=== PATIENT | female | born 1975 | race Caucasian/White ===

== ENCOUNTER 2021-08-22 11:16 | Emergency (ER) | payer SELFPAY ==
[2021-08-22 11:54] LABS: Urine Blood Negative (Negative); Urine Glucose Negative (Negative); Urine Protein Trace (Negative); Urine Specific Gravity >=1.030 (1.005-1.030)
[2021-08-22] MEDS ORDERED: LIDOCAINE VISCOUS 2% SOLN 15 ML UDC ONE (12:17)
[2021-08-22] MEDS ORDERED: MAGNES/ALUMIN/SIMET 30ML UCUP ONE (12:17)
[2021-08-22 12:20] LABS: Basophils % 0.5 % (0-1.3); Hematocrit 41.6 % (36.0-45.0); Lymphocytes % 14.1 % (15.3-44.8); MPV 8.6 fL (7.6-11.3); RBC Red Blood Cell Count 4.41 M/uL (3.86-4.86)
[2021-08-22 12:41] LABS: Urine Specific Gravity/Preg >1.030 (1.005-1.030)
[2021-08-22 12:47] LABS: ALT/SGPT 23 U/L (12-78); AST/SGOT 15 U/L (15-37); Albumin 3.5 g/dL (3.4-5.0); Alkaline Phosphatase 68 U/L (45-117); BUN Blood Urea Nitrogen 13 mg/dL (7-18); Bicarbonate 30 mmol/L (21-32); Bilirubin Direct 0.1 mg/dL (0-0.2); Bilirubin Total 0.5 mg/dL (0.2-1.0); Glucose Level 92 mg/dL (74-106); Lipase 101 U/L (73-393); Protein, Total 7.4 g/dL (6.4-8.2); Sodium Level 142 mmol/L (136-145)
--- NOTE | 2021-08-22 13:58 | RAD REPORT ---
EXAM DESCRIPTION: CT - Abdomen Pelvis W Contrast - 08/22/2021 1:37 pm CLINICAL HISTORY: Abdominal pain COMPARISON: none. TECHNIQUE: Computed axial tomography of the abdomen pelvis was obtained. 100 cc Isovue-300 was admin istered intravenously. Oral contrast was not requested which limits evaluation of bowel. All CT scans are performed using dose optimization technique as appropriate and may include automated exposure control or mA/KV adjustment according to patient size. FINDINGS: The wall of the distal stomach is thickened. Small hepatic cyst Spleen, pancreas, adrenals and kidneys are unremarkable The wall of the rectum is thickened. No evidence of diverticulitis. Endometrial stripe is mildly prominent. IMPRESSION: Wall of the distal stomach is thickened probably a gastritis. Follow-up recommended. Wall of the rectum is thickened. This could be post treatment change, inflammation or neoplasm. Endometrial stripe is mildly prominent. If the patient is premenopausal then this probably is not sig nificant. If the patient is postmenopausal this could indicate neoplasm, hyperplasia or polyp.
--- NOTE | 2021-08-22 15:20 | EDPHYS ---
Physician Documentation [facility] Name: Maryuri Cooley Age: 46 yrs Sex: Female : 1975 Arrival Date: 08/22/2021 Time: 11:18 Bed 13 Private MD: ED Physician Pk Arzate HPI: 08/22 17:55 This 46 yrs old Female presents to ER via Ambulatory with complaints of kdr Abdominal Pain, Diarrhea. 17:52 The patient presents to the emergency department with nausea, vomiting, abdominal pain. kdr Onset: The symptoms/episode began/occurred acutely, 2 day(s) ago. Possible causes: unknown. The symptoms are aggravated by food , The symptoms are alleviated by nothing. Associated signs and symptoms: The patient has no apparent associated signs or symptoms. Severity of symptoms: At their worst the symptoms were mild moderate just prior to arrival. The patient has not experienced similar symptoms in the past. The patient has not recently seen a physician. Patient has had upper abdominal pain since yesterday. There is a generalized level of discomfort with occasional spikes of sharp pain. She has had some nausea but no vomiting notes some loose stools but not diarrhea. She has not experienced this before. She is otherwise in good health and has no other associated signs and symptoms. 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 - Social history:: Smoking status: Patient denies any tobacco usage or history of. ROS: 17:52 Constitutional: Negative for fever, chills, and weight loss, Eyes: Negative for injury, kdr pain, redness, and discharge, ENT: Negative for injury, pain, and discharge, Neck: Negative for injury, pain, and swelling, Cardiovascular: Negative for chest pain, palpitations, and edema, Respiratory: Negative for shortness of breath, cough, wheezing, and pleuritic chest pain, Back: Negative for injury and pain, : Negative for injury, bleeding, discharge, and swelling, MS/Extremity: Negative for injury and deformity, Skin: Negative for injury, rash, and discoloration, Neuro: Negative for headache, weakness, numbness, tingling, and seizure activity. Psych: Negative for depression, anxiety, suicide ideation, homicidal ideation, and hallucinations, Allergy/Immunology: Negative for hives, rash, and allergies, Endocrine: Negative for neck swelling, polydipsia, polyuria, polyphagia, and marked weight changes, Hematologic/Lymphatic: Negative for swollen nodes, abnormal bleeding, and unusual bruising. 17:52 Abdomen/GI: Positive for abdominal pain, nausea, vomiting, and diarrhea, Patient states that she feels slightly bloated. Exam: 17:52 Constitutional: This is a well developed, well nourished patient who is awake, alert, kdr and in no acute distress. Head/Face: Normocephalic, atraumatic. Eyes: Pupils equal round and reactive to light, extra-ocular motions intact. Lids and lashes normal. Conjunctiva and sclera are non-icteric and not injected. Cornea within normal limits. Periorbital areas with no swelling, redness, or edema. Neck: Trachea midline, no thyromegaly or masses palpated, and no cervical lymphadenopathy. Supple, full range of motion without nuchal rigidity, or vertebral point tenderness. No Meningismus. Chest/axilla: Normal chest wall appearance and motion. Nontender with no deformity. No lesions are appreciated. Cardiovascular: Regular rate and rhythm with a normal S1 and S2. No gallops, murmurs, or rubs. Normal PMI, no JVD. No pulse deficits. Respiratory: Lungs have equal breath sounds bilaterally, clear to auscultation and percussion. No rales, rhonchi or wheezes noted. No increased work of breathing, no retractions or nasal flaring. Back: No spinal tenderness. No costovertebral tenderness. Full range of motion. Skin: Warm, dry with normal turgor. Normal color with no rashes, no lesions, and no evidence of cellulitis. MS/ Extremity: Pulses equal, no cyanosis. Neurovascular intact. Full, normal range of motion. Neuro: Awake and alert, GCS 15, oriented to person, place, time, and situation. Cranial nerves II-XII grossly intact. Motor strength 5/5 in all extremities. Sensory grossly intact. Cerebellar exam normal. Normal gait. Psych: Awake, alert, with orientation to person, place and time. Behavior, mood, and affect are within normal limits. 17:52 Abdomen/GI: Inspection: abdomen appears normal, Bowel sounds: diminished, in all quadrants, Palpation: soft, mild abdominal tenderness, in the epigastric area, right upper quadrant and left upper quadrant. Vital Signs: 11:26 BP 141 / 110; Pulse 95; Resp 16; Temp 97.8; Pulse Ox 100% on R/A; Weight 49.9 kg; iw Height 5 ft. 0 in. (152.40 cm); Pain 8/10; 14:09 BP 140 / 99; Pulse 66; Resp 15; Pulse Ox 100% ; Pain 8/10; jl7 15:00 BP 137 / 92; Pulse 70; Resp 15; Pulse Ox 100% ; jl7 11:26 Body Mass Index 21.48 (49.90 kg, 152.40 cm) iw MDM: 15:20 Patient medically screened. kdr 17:52 Data reviewed: vital signs, nurses notes, lab test result(s), radiologic studies. kdr Counseling: I had a detailed discussion with the patient and/or guardian regarding: the historical points, exam findings, and any diagnostic results supporting the discharge/admit diagnosis, lab results, radiology results, the need for outpatient follow up. ED course: The patient improved with the interventions given. She did not get complete resolution of her symptoms but did feel better. She was happy with the care provided and the plan for follow-up after discharge. 08/22 11:25 Order name: Basic Metabolic Panel [facility] [address] 08/22 11:25 Order name: CBC with Diff; Complete Time: 13:57 [facility] [address] 08/22 11:25 Order name: Hepatic Function [facility] [address] 08/22 11:25 Order name: Lipase [facility] [address] 08/22 11:26 Order name: Basic Metabolic Panel; Complete Time: 13:57 EDMS 08/22 11:26 Order name: Liver (Hepatic) Function; Complete Time: 13:57 EDUT 08/22 11:25 Order name: IV Saline Lock; Complete Time: 12:24 [facility] [address] 08/22 11:25 Order name: Labs collected and sent; Complete Time: 12:24 [facility] [address] 08/22 11:26 Order name: Lipase; Complete Time: 13:57 EDUT 08/22 11:54 Order name: Urine Dipstick-Ancillary; Complete Time: 13:57 EDUT 08/22 12:00 Order name: Urine --Ancillary (enter results); Complete Time: 13:57 em1 08/22 12:50 Order name: CT Abd/Pelvis - IV Contrast Only; Complete Time: 14:07 kdr Administered Medications: 14:20 Drug: GI Cocktail without - (Maalox Suspension 30 ml, Lidocaine Liquid 2 % 15 jl7 ml) Route: PO; 15:00 Follow up: Response: No adverse reaction; Pain is decreased jl7 Disposition Summary: 08/22/21 15:20 Discharge Ordered Location: Home kdr Problem: new kdr Symptoms: have improved kdr Condition: Stable kdr Diagnosis - Abdominal pain, Generalized kdr - Acute gastritis kdr Followup: kdr - With: Private Physician - When: 2 - 3 days - Reason: If symptoms return, Further diagnostic work-up, Recheck today's complaints, Continuance of care, Re-evaluation by your physician Discharge Instructions: - Discharge Summary Sheet kdr - Gastritis, Adult, [id number] kdr - Abdominal Pain, Adult, [id number] kdr Forms: - Medication Reconciliation Form kdr - Thank You Letter kdr - Antibiotic Education kdr - Work release form jl7 Prescriptions: - dicyclomine 20 mg Oral tablet - take 1 tablet by ORAL route 3 times per day As needed; 20 tablet; Refills: 0, kdr Product Selection Permitted - Cipro 500 mg Oral Tablet - take 1 tablet by ORAL route every 12 hours for 7 days; 14 tablet; Refills: 0, kdr Product Selection Permitted - Flagyl 500 mg Oral Tablet - take 1 tablet by ORAL route every 8 hours for 7 days; 21 tablet; Refills: 0, kdr Product Selection Permitted - Zofran 4 mg Oral Tablet - take 1 tablet by ORAL route every 4-6 hours As needed; 12 tablet; Refills: 0, kdr Product Selection Permitted - Pepcid 20 mg Oral Tablet - take 1 tablet by ORAL route once daily; 20 tablet; Refills: 0, Product kdr Selection Permitted Signatures: Dispatcher [employer] Pk Littlejohn MD MD kdr Williams, Irene, RN RN iw Irina Lundy RN RN jl7
--- NOTE | 2021-08-22 15:20 | ER ---
Nurse's Notes [facility] Name: Maryuri Cooley Age: 46 yrs Sex: Female : 1975 Arrival Date: 08/22/2021 Time: 11:18 Bed 13 Private MD: Diagnosis: Abdominal pain, Generalized;Acute gastritis Presentation: 08/22 11:26 Chief complaint: Patient states: is having mid abd pain and diarrhea, diarrhea has iw stopped but the pain is still there, is constantly dull but sometimes has sharp pains. Coronavirus screen: diarrhea. Ebola Screen: Patient negative for fever greater than or equal to 101.5 degrees Fahrenheit, and additional compatible Ebola Virus Disease symptoms Patient denies exposure to infectious person. Patient denies travel to an Ebola-affected area in the 21 days before illness onset. No symptoms or risks identified at this time. Initial Sepsis Screen: Does the patient meet any 2 criteria? No. Patient's initial sepsis screen is negative. Does the patient have a suspected source of infection? No. Patient's initial sepsis screen is negative. Risk Assessment: Do you want to hurt yourself or someone else? Patient reports no desire to harm self or others. Onset of symptoms was August 21, 2021. 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 - Social history:: Smoking status: Patient denies any tobacco usage or history of. Screenin:24 Abuse screen: Denies threats or abuse. Denies injuries from another. Nutritional jl7 screening: No deficits noted. Tuberculosis screening: No symptoms or risk factors identified. Fall Risk IV access (20 points). Total Crowe Fall Scale indicates No Risk (0-24 pts). Assessment: 12:24 General: Appears in no apparent distress. uncomfortable, Behavior is calm, cooperative, jl7 appropriate for age. Pain: Complains of pain in epigastric area Pain radiates to upward Pain currently is 8 out of 10 on a pain scale. Pain began 1 day ago. Is continuous. Neuro: Level of Consciousness is awake, alert, obeys commands, Oriented to person, place, time, situation. Cardiovascular: Patient's skin is warm and dry. Respiratory: Airway is patent Respiratory effort is even, unlabored, Respiratory pattern is regular, symmetrical. GI: Abdomen is non-distended, Reports diarrhea, epigastric pain, nausea. Derm: Skin is pink, warm \T\ dry. 14:09 Reassessment: Patient appears in no apparent distress at this time. No changes from jl7 previously documented assessment. Patient and/or family updated on plan of care and expected duration. Pain level reassessed. Patient is alert, oriented x 3, equal unlabored respirations, skin warm/dry/pink. 15:00 Reassessment: Patient appears in no apparent distress at this time. Patient and/or jl7 family updated on plan of care and expected duration. Pain level reassessed. Patient is alert, oriented x 3, equal unlabored respirations, skin warm/dry/pink. Patient states symptoms have improved. Vital Signs: 11:26 BP 141 / 110; Pulse 95; Resp 16; Temp 97.8; Pulse Ox 100% on R/A; Weight 49.9 kg; iw Height 5 ft. 0 in. (152.40 cm); Pain 8/10; 14:09 BP 140 / 99; Pulse 66; Resp 15; Pulse Ox 100% ; Pain 8/10; jl7 15:00 BP 137 / 92; Pulse 70; Resp 15; Pulse Ox 100% ; jl7 11:26 Body Mass Index 21.48 (49.90 kg, 152.40 cm) ED Course: 11:18 Patient arrived in ED. mr 11:25 Pk Arzate MD is Attending Physician. kdr 11:28 Triage completed. iw 11:28 Arm band placed on. iw 11:54 Patient has correct armband on for positive identification. Placed in gown. Bed in low mh5 position. Call light in reach. Side rails up X 1. Warm blanket given. Pulse ox on. NIBP on. 11:55 Urine collected: clean catch specimen, clear. 5 12:06 Irina Lundy RN is Primary Nurse. jl7 12:24 Initial lab(s) drawn, by me, sent to lab. Inserted saline lock: 20 gauge in right jl7 antecubital area, using aseptic technique. Blood collected. 13:15 Basic Metabolic Panel Sent. jl7 13:15 Hepatic Function Sent. jl7 13:15 Lipase Sent. jl7 13:37 CT Abd/Pelvis - IV Contrast Only In Process Unspecified. EDMS 15:36 No provider procedures requiring assistance completed. IV discontinued, intact, jl7 bleeding controlled, No redness/swelling at site. Pressure dressing applied. Administered Medications: 14:20 Drug: GI Cocktail without - (Maalox Suspension 30 ml, Lidocaine Liquid 2 % 15 jl7 ml) Route: PO; 15:00 Follow up: Response: No adverse reaction; Pain is decreased jl7 Outcome: 15:20 Discharge ordered by . kdr 15:36 Discharged to home ambulatory. jl7 15:36 Condition: stable 15:36 Discharge instructions given to patient, Instructed on discharge instructions, follow up and referral plans. medication usage, Demonstrated understanding of instructions, follow-up care, medications, Prescriptions given X 5 15:37 Patient left the ED. jl7 Signatures: Dispatcher [employer] EDMS Pk Arzate MD MD [facility] Jenny Kimball mr Carolyn Frederick, RN RN Charley Sow [facility] Irina Lundy, RN RN jl7 Corrections: (The following items were deleted from the chart) 11:29 11:26 BP 163 / 121; Pulse 95bpm; Resp 16bpm; Pulse Ox 100% RA; Temp 97.8F; 49.9 kg; iw Height 5 ft. 0 in.; BMI: 21.4; Pain 8/10; iw
[2021-08-22 15:53] VITALS: TEMP 97.8; O2SAT 100
[2021-08-22 15:56] VITALS: BP 137/92
== END 2021-08-22 15:37 | disposition home or self-care (01) ==
LOC: ER 11:16
DX: K29.00 Acute gastritis without bleeding (principal)
CPT/HCPCS: 36415; 74177; 80048; 80076; 81003; 81025; 83690; 85025; 99284; Q9967